=== PATIENT | female | born 1980 | race Caucasian/White ===

== ENCOUNTER 2021-12-19 21:34 | Inpatient (IN) | payer MEDICAID, OTHER ==
[2021-12-19 23:45] LABS: Amphetamine Screen,Urine Not Detected (NotDetected); Barbiturate Screen,Urine Not Detected (NotDetected); Benzodiazepines Screen,Urine Detected (NotDetected); Cocaine Screen,Urine Not Detected (NotDetected); Methadone Screen, Urine Not Detected (NotDetected); Opiate Screen,Urine Not Detected (NotDetected); Oxycodone Screen, Urine Not Detected (NotDetected); Phencyclidine Screen,Urine Not Detected (NotDetected); Tricyclic Antidepressant,Urine Not Detected (NotDetected); Urn Cannabinoid Scrn Detected (NotDetected)
[2021-12-20] MEDS ORDERED: ONDANSETRON ODT 4 MG TAB PO STA (01:08)
--- NOTE | 2021-12-20 01:29 | ED ---
General Adult HPI - General Chief complaint: Psychiatric Symptoms Stated complaint: Mental Health Time Seen by Provider: 12/20/21 01:02 Source: patient, RN notes reviewed, old records reviewed Mode of arrival: ambulatory Limitations: no limitations - History of Present Illness Initial comments: 41-year-old female presenting for mental health evaluation. Patient has had increased suicidal thoughts. She did not have a suicide attempt. She was seen yesterday at this institution and states that she is not doing better in his had increased concerns for suicide. She has dealt with suicide and depression for some time. She has not had anything to eat or drink in the past several days. - Related Data Allergies Allergy/AdvReac Type Severity Reaction Status Date / Time No Known Allergies Allergy Verified 12/19/21 23:12 Review of Systems ROS Statement: Those systems with pertinent positive or pertinent negative responses have been documented in the HPI. ROS Other: All systems not noted in ROS Statement are negative. Past Medical History Additional Past Medical History / Comment(s): anxiety depression, PBST History of Any Multi-Drug Resistant Organisms: None Reported Past Surgical History: Tubal Ligation Past Psychological History: Anxiety, Depression Smoking Status: Never smoker Past Alcohol Use History: None Reported Past Drug Use History: None Reported General Exam Limitations: no limitations General appearance: alert, in no apparent distress Head exam: Present: atraumatic, normocephalic Eye exam: Present: normal appearance, PERRL Neck exam: Present: normal inspection Respiratory exam: Present: normal lung sounds bilaterally. Absent: respiratory distress, wheezes Cardiovascular Exam: Present: regular rate, normal rhythm GI/Abdominal exam: Present: soft. Absent: distended, tenderness Extremities exam: Present: normal inspection, normal capillary refill Neurological exam: Present: alert, oriented X3, CN II-XII intact. Absent: motor sensory deficit Psychiatric exam: Present: depressed, suicidal ideation Skin exam: Present: warm, dry, intact. Absent: cyanosis, diaphoretic Course Vital Signs 12/19/21 23:07 Temperature 98.3 F Pulse Rate 81 Respiratory 22 Rate Blood Pressure 138/96 O2 Sat by Pulse 98 Oximetry - Reevaluation(s) Reevaluation #1: 12/20/21 01:29 Cleared for EPS Medical Decision Making - Medical Decision Making 41-year-old female presenting for suicidal ideation. Patient had been evaluated by EPS after she was medically cleared and felt to require inpatient psychiatric treatment. She will be admitted to this institution. - Lab Data Lab Results 12/19/21 Range/Units 23:27 Urine Opiates Screen Not Detected (NotDetected) Ur Oxycodone Screen Not Detected (NotDetected) Urine Methadone Screen Not Detected (NotDetected) Ur Propoxyphene Screen Not Detected (NotDetected) Ur Barbiturates Screen Not Detected (NotDetected) U Tricyclic Antidepress Not Detected (NotDetected) Ur Phencyclidine Scrn Not Detected (NotDetected) Ur Amphetamines Screen Not Detected (NotDetected) U Methamphetamines Scrn Not Detected (NotDetected) U Benzodiazepines Scrn Detected H (NotDetected) Urine Cocaine Screen Not Detected (NotDetected) U Marijuana (THC) Screen Detected H (NotDetected) Disposition Clinical Impression: Depression, Suicidal ideation Disposition: ADMITTED IP TO THIS [facility] Condition: Stable Is patient prescribed a controlled substance at d/c from ED?: No Referrals: Rosanne Elliott MD [Primary Care Provider] - 1-2 days Time of Disposition: 03:20
[2021-12-20] MEDS ORDERED: HALOPERIDOL LACTATE 5 MG/ML 1 ML VIAL IM PRN (03:58)
[2021-12-20] MEDS ORDERED: ACETAMINOPHEN TAB 325 MG TAB PO PRN (03:58)
[2021-12-20] MEDS ORDERED: MAGNESIUM HYDROXIDE 2,400 MG/10 ML CUP PO PRN (03:58)
[2021-12-20] MEDS ORDERED: MAG HYDROX/AL HYDROX/SIMETH 30 ML CUP PO PRN (03:58)
[2021-12-20] MEDS ORDERED: LORazepam 2 MG/ML INJ IM PRN (04:03)
[2021-12-20] MEDS ORDERED: haloperidoL 5 MG TAB PO PRN (04:04)
[2021-12-20 04:59] LABS: Amorphous Sediment,Urine Rare /hpf; Appearance,Urine Turbid (Clear); Bacteria,Urine Many /hpf; Bilirubin,Urine 1+ (Negative); Blood,Urine Large (Negative); Color,Urine Yellow; Glucose,Urine (UA) Negative (Negative); Ketones,Urine 4+ (Negative); Leukocyte Esterase,Urine Moderate (Negative); Mucus,Urine Many /hpf; Nitrite,Urine Negative (Negative); Protein,Urine 1+ (Negative); RBC,Urine 21 /hpf (0-5); Specific Gravity,Urine 1.029 (1.001-1.035); WBC,Urine 8 /hpf (0-5)
[2021-12-20 08:45] VITALS: RESP 16
[2021-12-20] MEDS: ESCITALOPRAM 10 MG TAB PO SCH (08:46)
[2021-12-20] MEDS: LORazepam 1 MG TAB PO PRN (08:46)
[2021-12-20] MEDS ORDERED: busPIRone HCl 5 MG TAB PO SCH (09:00)
[2021-12-20] MEDS ORDERED: TOPIRAMATE 25 MG TAB PO STA (10:13)
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
[2021-12-20] MEDS ORDERED: MIRTAZAPINE 15 MG TAB PO SCH (21:00)
[2021-12-20] MEDS: TOPIRAMATE 25 MG TAB PO SCH (21:07)
[2021-12-21] MEDS: ESCITALOPRAM 10 MG TAB PO SCH (08:01)
[2021-12-21] MEDS: TOPIRAMATE 25 MG TAB PO SCH ×2 (08:01→20:34)
[2021-12-21] MEDS: LORazepam 1 MG TAB PO PRN ×2 (08:59→21:12)
--- NOTE | 2021-12-21 11:43 | P.PN ---
Progress Note - Text Progress Note Date: 12/21/21 Interval History: Patient was seen wandering the hallways and was directable and agreeable to speak with promotion writer in the office. Currently, the patient reports that her depression is mildly improving. She states that she spent all yesterday, lying down in bed, with low motivation and low energy. She reports that she was not really thinking of anything but rather just felt empty. She reports that she is feeling better today and has made attempts to go to groups. She reports that she had suicidal thoughts yesterday however's denying any ideation or intention today. She denies any homicidal ideation, intention, and/or plan. She is not reporting any auditory or visual hallucinations. She reports no paranoia or other delusions. She expresses no concerns of headaches today. She has been adherent with her medications and is not reporting any significant side effects at this time. She is in agreement for further titration of her medications. The patient does report a mildly improved appetite. She states sleep was fine. Mental Status Exam: General Appearance: Patient appears to be stated age is alert, directable, and cooperative. Mildly disheveled. Behavior: Patient is calmly seated without any agitated behavior. Speech: Patient's speech is fluent and nonpressured. Mood/Affect: Mood is improving mildly, affect is congruent and constricted. Suicidality/Homicidality: Patient reports suicidal ideation yesterday however denies any suicidal or homicidal ideation today. Perceptions: Patient denies any visual hallucinations and denies any auditory hallucinations Though content/process: There is no evidence of any delusional thought content and thought process is linear and goal-directed. Memory and concentration: AOX3, grossly intact for the purposes of this session Judgment and insight: Improving mildly Vital Signs Temp 97.6 F 12/20/21 05:36 Pulse 113 H 12/21/21 09:04 Resp 16 12/20/21 08:44 BP 113/80 12/21/21 09:04 Pulse Ox 98 12/20/21 05:36 FiO2 Assessment Major Depressive Disorder, recurrent, severe Posttraumatic Stress Disorder TBI Plan: -Patient continues to meet criteria for inpatient psychiatric admission for symptom stabilization and safety. Patient has signed adult voluntary form and medication consent and was placed in patient's chart. -Medications: Continue Topamax 25 mg by mouth twice a day for migraine headaches and for off label use for PTSD Increase Lexapro to 20 mg daily for depression/anxiety Increase Remeron to 30 mg by mouth at bedtime for depression/insomnia/appetite stimulation -When necessary Ativan and Haldol for agitation/aggression. -SW on board for discharge planning. Encouraged the patient to participate in milieu.
[2021-12-21 14:42] VITALS: BMI 20.1
[2021-12-21] MEDS ORDERED: MIRTAZAPINE 15 MG TAB PO SCH (21:00)
[2021-12-22 06:48] VITALS: TEMP 97.8
[2021-12-22] MEDS: TOPIRAMATE 25 MG TAB PO SCH (08:36)
[2021-12-22] MEDS: LORazepam 1 MG TAB PO PRN (08:37)
[2021-12-22 08:39] VITALS: BP 107/80; PULSE 115
[2021-12-22] MEDS ORDERED: ESCITALOPRAM 20 MG TAB PO SCH (09:00)
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
== END 2021-12-22 12:37 | disposition home or self-care (01) | DRG 885 ==
LOC: EC 21:34 → 3MHU 12-20 03:56
PROVIDERS: ADMIT Psychiatry & Neurology Psychiatry; ATTEND Psychiatry & Neurology Psychiatry
DX: F33.2 Major depressive disorder, recurrent severe without psychotic features (principal); R45.851 Suicidal ideations; F43.10 Post-traumatic stress disorder, unspecified; G43.909 Migraine, unspecified, not intractable, without status migrainosus; G47.00 Insomnia, unspecified; R31.9 Hematuria, unspecified; F41.8 Other specified anxiety disorders; Z20.822 Contact with and (suspected) exposure to COVID-19; Z63.5 Disruption of family by separation and divorce; Z98.51 Tubal ligation status; Z87.820 Personal history of traumatic brain injury; Z81.8 Family history of other mental and behavioral disorders; Z81.4 Family history of other substance abuse and dependence
CPT/HCPCS: 80306; 81001; 81025; 82075; 87635; 93005; 99285